=== PATIENT | female | born 1965 | race Caucasian/White ===

== ENCOUNTER 2025-01-04 10:57 | Outpatient (REF) | payer OTHER, SELFPAY ==
--- OUTSIDE RECORDS SUMMARY | 2025-01-04 11:32 | XMS_ITS | Clinical Summary ---
Author Organization [facility] Address [address] [place] [address] Care Team Providers Care Mattress Maker Name Role Phone Marky Madrid MD Primary Care Provider [phone] Allergies Active Allergy Reactions Criticality Noted Date Comments Amoxicillin 04/19/2024 Medications Medication Sig Dispensed Refills Start Date End Date Status ALPRAZolam (XANAX) 1 MG tablet Take 1 tablet (1 mg total) by mouth every night at bedtime as needed for sleep. 0 Active pancrelipase, Kpk-Retm-Jthz, (Zenpep) [address] capsule Take 1 capsule (10,000 units of lipase total) by mouth 3 (three) times a day with meals. 0 Active Escitalopram Oxalate (LEXAPRO PO) Take by mouth. 0 Active Mirtazapine (REMERON PO) Take by mouth. 0 Active Ondansetron HCl (ZOFRAN PO) Take by mouth. 0 Active traMADol HCl 25 MG TABS Take by mouth. 0 Active Active Problems No known active problems Family History Medical History Relation Name Comments Cervical cancer Mother Relation Name Status Comments Mother Social History Tobacco Use Types Packs/Day Years Used Date Smoking Tobacco: Every Day Cigarettes 0.5 Smokeless Tobacco: Never Tobacco Cessation:Ready to Q uit: Not Asked; Counseling Given: Not Answered Alcohol Use Standard Drinks/Week Comments Never 0 (1 standard drink = 0.6 oz pur e alcohol) Sex and Gender Information Value Date Recorded Sex Assigned at Female 03/28/2024 2:46 PM EDT Gender Identity Not on file Sexual Orientation Not on file Job Start Date Occupation Industry Not on file Not on file Not on file Last Filed Vital Signs Vital Sign Reading Time Taken Comments Blood Pressure 148/103 04/19/2024 11:18 AM EDT Pulse 71 04/19/2024 11:18 AM EDT Temperature 36.7 C (98 F) 04/19/2024 11:18 AM EDT Respiratory Rate - - Oxygen Saturation 99% 04/19/2024 11:18 AM EDT Inhaled Oxygen Concentration - - Weight 64.2 kg (141 lb 9.6 oz) 04/19/2024 11:18 AM EDT Height 158.8 cm (5' 2.5 ) 04/19/2024 11:18 AM ED T Body Mass Index 25.49 04/19/2024 11:18 AM EDT Plan of Treatment Health Maintenance Due Date Last Done Comments Hepatitis B Vaccines (1 of 3 - 3-dose series) 1967 Hepatitis C Screening 1967 Depression Screening 1979 Preventative Health Evaluation 1985 DTap / Tdap / Td (1 - Tdap) 1986 Cervical Cancer Screening (Pap Smear) 1988 Colon Cancer Screening (Colonoscopy) 2012 Breast Cancer Screening (Mammogram) 2017 Shingrix-Zoster Vaccine (1 of 2) 2017 Pneumococcal Vaccine (2 of 2 - PCV) 04/18/2021 04/18/2020 COVID-19 Vaccine ( season) 2024 03/30/2022, 06/09/2021, 09/10/2020, Additional history exists Influenza Vaccine (#1) 2025 RSV Ped < 20 months Aged Out No longe r eligible based on patient's age to complete this topic Care Teams Mattress Maker Relationship Specialty Start Date End Date Marky Madrid MD [address] [place] [phone] PCP - General Family Medicine 04/19/24
--- OUTSIDE RECORDS SUMMARY | 2025-01-04 11:32 | XMS_ITS | Encounter Summary ---
Author Organization [facility] Address [address] [place] [address] Care Team Providers Care Tractor Trailer Mechanic Name Role Phone Elizabeth Bee NP Primary Care Provider Reason for Visit * Reason Onset Date Comments Therapeutic Phlebotomy 12/16/2024 Encounter Details Date Type Department Care Team (Late st Contact Info) Description 12/16/2024 Telephone [facility] Hematology Oncology [address] [place] [phone] Valeria Sena, DO [address] [place] [address] Therapeutic Phlebotomy Social History Tobacco Use Types Packs/Day Years [...] PM EST documented as of this encounter Functional Status * Are you deaf or do you have serious difficulty hearing? Answer Date of Assessment Author No 05/30/2024 7:54 PM EST Guillaume Del Toro RN * Are you blind or do you have serious difficulty seeing, even when wearing glasses? Answer Date of Assessment Author No 05/30/2024 7:54 PM EST Guillaume Del Toro RN * Do you have serious difficulty walking or climbing stairs? Answer Date of Assessment Author No 05/30/2024 7:54 PM Guillaume Velez RN * Do you have serious difficulty dressing or bathing? Answer Date of Assessment Author No 05/30/2024 7:54 PM Guillaume Velez RN * Because of a physical, mental, or emotional condition, do you have serious difficulty doing errandsalone such as visiting the doctor? Answer Date of Assessment Author No 05/30/2024 7:54 PM Guillaume Velez RN documented as of this encounter Mental Status * Because of a physical, mental, or emotional condition, do you have serious difficulty concentrating, remembering, or making decisions? (5 years old or older) Answer Entry Date Author No 05/30/2024 7:54 PM Guillaume Velez RN documented in this encounter Progress Notes * Ondina Moreno RN - 12/17/2024 3:17 PM EDT S/w patient - Reviewed MD response - [place] TP was in [place] a year ago - Confirmed next FOV on 12/24/24 @ 1045. Provided [facility] info for TP to be performed there- Explained we will send the order and when [facility] receives it then they will call her to schedule the TP appt. * Ondina Moreno RN - 12/17/2024 11:01 AM EDT Awaiting callback from patient. * Valeria Sena DO - 12/16/2024 8:40 PM EDT Heme Onc Telephone note Patient has No showed one appt and cancelled another appointment. There are several results which need to be reviewed more urgently her iron level was quite high and she should go for phlebotomy Ondina can you call her and help set her up if she is not yet set up somewhere? Thanks documented in this encounter Plan of Treatment Upcoming Encounters Date Type Department Care Team (Late st Contact Info) Description 01/09/2025 10:45 AM EDT Office Visit [facility] Hematology Oncology [address] [place] [phone] Valeria Sena DO [address] [place] [address] documented as of this encounter Visit Diagnoses Not on filedocumented in this encounter Care Teams Tractor Trailer Mechanic Relationship Specialty Start Date End Date Elizabeth Bee NP [address] [place] [phone] PCP - General Internal Medicine 10/21/24 documented as of this encounter
== END 2025-01-04 10:58 | disposition home or self-care (01) ==
LOC: HO.BBR 10:57
PROVIDERS: Visit Provider Internal Medicine
DX: Z13.89 Encounter for screening for other disorder (principal)

== ENCOUNTER 2025-04-19 09:42 | Outpatient (REF) | payer OTHER, SELFPAY ==
--- OUTSIDE RECORDS SUMMARY | 2024-04-19 10:32 | XMS_ITS | Encounter Summary ---
Author Organization [facility] Address [address] [place] [address] Care Team Providers Care Kalsominer Name Role Phone Marky Madrid MD Primary Care Provider [phone] Encounter Details Date Type Department Care Team (Late st Contact Info) Description 04/19/2024 10:32 AM EDT Hospital Encounter TH HISTORIC ENCOUNTERS EASTERN CONVERSION ONLY Valeria Sena, DO [address] [place] [address] Social History Tobacco Use Types Packs/Day Years Used Date Smoking Tobacco: Every Day Cigarettes Smokeless Tobacco: Never Alcohol Use Standard Drinks/Week Comments Never 0 (1 standard drink = 0.6 oz pur e alcohol) Comments Unknown Sex and Gender Information Value Date Recorded Sex Assigned at Female 05/30/2024 4:09 PM EST Legal Sex Female 6:50 PM EDT Gender Identity Female 05/30/2024 4:09 PM EST Sexual Orientation Straight 05/30/2024 4: 09 PM EST documented as of this encounter Last Filed Vital Signs Vital Sign Reading Time Taken Comments Blood Pressure 148/103 04/19/2024 11:18 AM EDT Sitting Left arm Pulse 71 04/19/2024 11:18 AM EDT Temperature - - Respiratory Rate - - Oxygen Saturation - - Inhaled Oxygen Concentration - - Weight 64.2 kg (141 lb 9.6 oz) 04/19/2024 11:18 AM EDT Height 158.8 cm (5' 2.5 ) 04/19/2024 11 :18 AM EDT Body Mass Index 25.49 04/19/2024 11:18 AM EDT documented in this encounter Functional Status * Calculated C-SSRS Risk Score (Lifetime/Recent) Answer Date of Assessment Author No Risk Indicated 05/30/2024 8:13 PM Kemi Velez RN * [place] Suicide Severity Rating Scale (Screener/Recent Self-Report) Question Answer Date of Assessment Author 1. Wish to be (Past 1 Month) No 024 8:13 PM Kemi Velez RN 2. Non-Specific Active Suici joesph Thoughts (Past 1 Month) No 05/30/2024 8:13 PM Dominique Velez RN 6. Suicidal Behavior (Lifetime) No 8:13 PM Kemi Velez RN documented as of this encounter Plan of Treatment Upcoming Encounters Date Type Department Care Team (Late st Contact Info) Description 04/24/2025 8:30 AM EST Office Visit [facility] Hematology Oncology [address] [place] [phone] Deepa Gonzalez PA [address] [place] [address] documented as of this encounter Visit Diagnoses Not on filedocumented in this encounter Care Teams Kalsominer Relationship Specialty Start Date End Date Marky Madrid MD [address] [place] [phone] PCP - General 04/19/24 10/20/24 documented as of this encounter
--- OUTSIDE RECORDS SUMMARY | 2025-04-19 10:56 | XMS_ITS | Encounter Summary ---
Author Organization [facility] Address [address] [place] [address] Care Team Providers Care Ballpoint Pen Assembly Machine Operator Name Role Phone Elizabeth Bee NP Primary Care Provider Encounter Details Date Type Department Care Team (Late st Contact Info) Description 04/12/2025 Telephone [facility] Hematology Oncology [address] [place] [phone] Valeria Sena, DO [address] [place] [address] Social History Tobacco Use Types Packs/Day Years [...] Assessment Author No 05/30/2024 7:54 PM EST Alverto, Ka therine, RN * Do you have serious difficulty [...] documented in this encounter Progress Notes * Kristy Champagne MA - 04/15/2025 3:56 PM EDT Spoke to pt, she states PT-1 form has been completed and all set for transportation. Pt has therapeutic phlebotomy within the next week. OV scheduled with RACHNA Arenas 04/24/25 8:30 am * Valeria Sena DO - 04/14/2025 8:54 PM EDT Would need to be booked with RACHNA for a visit , and transportation arranged for therapeutic phlebotomy * Abby Amezquita - 04/12/2025 10:48 AM EDT Pt had transportation issues that why she now showed pt would like a follow up soonest I see is Decpt says she needs to be seen sooner not feeling well Wants help with PT1 Ill send message to workers' compensation mediator as well Pt says can leave a voice mail if she dorset answer documented in this encounter Plan of Treatment Upcoming Encounters Date Type Department Care Team (Late st Contact Info) Description 04/24/2025 8:30 AM EST Office Visit [facility] Hematology Oncology [address] [place] [phone] Deepa Gonzalez PA [address] [place] [address] documented as of this encounter Visit Diagnoses Not on filedocumented in this encounter Care Teams Ballpoint Pen Assembly Machine Operator Relationship Specialty Start Date End Date Elizabeth Bee NP [address] [place] [address] PCP - General Internal Medicine 10/21/24 documented as of this encounter
--- OUTSIDE RECORDS SUMMARY | 2025-04-19 10:56 | XMS_ITS | Encounter Summary ---
Author Organization [facility] Address [address] [place] [address] Care Team Providers Care Air Antisubmarine Officer Name Role Phone Elizabeth Bee NP Primary Care Provider Encounter Details Date Type Department Care Team (Late st Contact Info) Description 04/15/2025 Telephone [facility] Hematology Oncology [address] [place] [phone] Valeria Sena, DO [address] [place] [address] Social History Tobacco Use Types Packs/Day Years [...] documented in this encounter Progress Notes * Letha Pinto - 04/15/2025 8:40 AM EDT Needs help with PT-1 form, does have updated address, appt Tuesday for phlebotomy. documented in this encounter Plan of Treatment Upcoming Encounters Date Type Department Care Team (Late st Contact Info) Description 04/24/2025 8:30 AM EST Office Visit [facility] Hematology Oncology [address] [place] [phone] Deepa Gonzalez PA [address] [place] [address] documented as of this encounter Visit Diagnoses Not on filedocumented in this encounter Care Teams Air Antisubmarine Officer Relationship Specialty Start Date End Date Elizabeth Bee NP [address] [place] [address] PCP - General Internal Medicine 10/21/24 documented as of this encounter
--- OUTSIDE RECORDS SUMMARY | 2025-04-19 10:56 | XMS_ITS | Clinical Summary ---
Author Organization [facility] Address [address] [place] [address] Care Team Providers Care Slot Attendant Name Role Phone Elizabeth Bee NP Primary Care Provider Allergies Active Allergy Reactions Criticality Noted Date Comments Amoxicillin Swelling 05/30/2024 Medications nicotine (NICODERM CQ) 21 mg/[address] 1 patch on the skin 1 (one) time each day at the same time. 30 each 05/30/2024 Active amLODIPine (NORVASC) 5 mg tablet Take 1 tablet (5 mg total) by mouth 1 (one) time each day for 14 days. 14 each 05/30/2024 Active Active Problems Problem Noted Date Diagnosed Date Chronic pancreatitis ([facility] V24, [facility] V28) 10/21/2024 Anxiety 10/21/2024 Hereditary hemochromatosis ([facility] V24) 025 Hypertension 10/21/2024 Pain in the abdomen 10/21/2024 Encounters Date Type Department Care Team Description 04/15/2025 Telephone [facility] Hematology Oncology [address] [place] [phone] Valeria Sena DO 04/12/2025 Social Work [facility] [address] [place] [phone] Juan C Grimm LMSW 04/12/2025 Telephone [facility] Hematology Oncology [address] [place] [phone] Valeria Sena DO from Last 3 Months Immunizations Immunization Administration Dates Next Due Pfizer (ages 12 & older) ZAKIA S-CoV-2 COVID-19, mRNA, LNP-S, judie-sucrose, preservative free 03/30/2022,06/09/2021,09/10/2020,2020 Medical History Medical History Date Comments Hemochromatosis Pancreatitis Anxiety Social History Tobacco Use Types Packs/Day Years Used Date Smoking Tobacco: Every Day Cigarettes Smokeless Tobacco: Never Tobacco Cessation:Ready to Q [...] Orientation Straight 05/30/2024 4: 09 PM EST Obstetrics History Last Filed Vital Signs Vital Sign Reading Time Taken Comments Blood Pressure 138/83 10/18/2024 9:21 AM EDT Pulse 84 10/18/2024 9:21 AM EDT Temperature 36.7 C (98 F) 10/18/2024 9:21 AM EDT Respiratory Rate 15 05/30/2024 8:45 PM EST Oxygen Saturation 100% 10/18/2024 9:21 AM EDT Inhaled Oxygen Concentration - - Weight 62.1 kg (137 lb) 10/18/2024 9:21 AM EDT Height 157.5 cm (5' 2 ) 10/18/2024 9:21 AM EDT Body Mass Index 25.06 10/18/2024 9:21 AM EDT Plan of Treatment Upcoming Encounters Date Type Department Care Team (Late st Contact Info) Description 04/24/2025 8:30 AM EST Office Visit [facility] Hematology Oncology [address] [place] [phone] Deepa Gonzalez PA [address] [place] [address] Health Maintenance Due Date Last Done Comments Breast Cancer Screening 1967 Colorectal Cancer Screening: Colonoscopy 1967 Hepatitis B Vaccines (1 of 3 - 19+ 3-dose series) 1986 Cervical Cancer Screening: Pap Smear 1988 RSV Immunization Adult Patients (1 - Risk 50-74 years 1-dose series) 2017 Zoster Vaccines (1 of 2) 2017 DTaP,Tdap,and Td Vaccines (2 - Td or Tdap) 02/18/2018 02/19/2008 Pneumococcal Vaccine: 50+ Years (2 of 2 - PCV) 04/18/2021 04/18/2020 Cholesterol Screening (Lipid Panel) 04/04/2024 HIV Screening 04/04/2024 Hepatitis C Screening 04/04/2024 Social Influencers of Health Screening 04/04/2024 Depression Screening 06/20/2024 Influenza Vaccine (#1) 2025 03/30/2022 Hypertension/CHF/CAD Annual BMP Blood Test 10/18/2025 10/18/2024, 05/30/2024 MMR Vaccines Aged Out 10/12/2021, 08/03/2021 No lo nger eligible based on patient's age to complete this topic COVID-19 Vaccine Completed 03/09/2024, 04/2022, 06/09/2021, Additional history exists HIB Vaccines Aged Out No longer eligi ble based on patient's age to complete this topic HPV Vaccines Aged Out No longer eligi ble based on patient's age to complete this topic Hepatitis A Vaccines Aged Out No long er eligible based on patient's age to complete this topic IPV Vaccines Aged Out No longer eligi ble based on patient's age to complete this topic Meningococcal ACWY Vaccine Aged Out N o longer eligible based on patient's age to complete this topic Meningococcal B Vaccine Aged Out No l onger eligible based on patient's age to complete this topic RSV Immunization Patients Under 20 months Aged Out No longer eligible based on patient's age to complete this topic Varicella Vaccines Aged Out No longer eligible based on patient's age to complete this topic Procedures Procedure Name Priority Date/Time Associated Diagnosis Comments COMPREHENSIVE METABOLIC PANEL Routine 10/18/2024 10:25 AM EDT Hereditary hemochromatosis (CMS/HCC V24) from Last 3 Months or Most Recently Relevant to Health Maintenance Results * (ABNORMAL) Comprehensive metabolic panel (10/18/2024 10:25 AM EDT) [facility] Sodium 137 133 - 145 mmol/L LAB CHEMISTRY METHOD 10/18/2024 12:23 PM [facility] Potassium 4.6 3.5 - 5.5 mmol/L LAB CHEMISTRY METHOD 10/18/2024 12:23 PM [facility] Chloride 106 96 - 110 mmol/L LAB CHEMISTRY METHOD 10/18/2024 12:23 PM [facility] CO2 24 21 - 32 mmol/L LAB CHEMISTRY METHOD 10/18/2024 12:23 PM [facility] Anion Gap 7 3 - 11 LAB CHEMISTRY METHOD 10/18/2024 12:23 PM [facility] Glucose 106(H) 70 - 100 mg/dL LAB CHEMISTRY METHOD 10/18/2024 12:23 PM [facility] BUN 13 5 - 25 mg/dL LAB CHEMISTRY METHOD 10/18/2024 12:23 PM [facility] Creatinine 0.64 0.50 - 1.10 mg/dL LAB CHEMISTRY METHOD 10/18/2024 12:23 PM [facility] eGFR 103 >=60 mL/min/1. 73m2 LAB CHEMISTRY METHOD 10/18/2024 12:23 PM [facility] Comment:Calculation based on the Chronic Kidney Disease Epidemiology Collaboration (CKD-EPI) equation refit without adjustment for race. BUN/Creatinine Ratio 20.3 LAB CHEMISTRY METHOD 10/18/2024 12:23 PM [facility] Calcium 8.8 8.5 - 10.5 mg/dL LAB CHEMISTRY METHOD 10/18/2024 12:23 PM [facility] AST (SGOT) 9(L) 10 - 42 unit/L LAB CHEMISTRY METHOD 10/18/2024 12:23 PM [facility] ALT (SGPT) 14 10 - 60 unit/L LAB CHEMISTRY METHOD 10/18/2024 12:23 PM EDT [facility] Alkaline Phosphatase 102 42 - 121 unit/L LAB CHEMISTRY METHOD 10/18/2024 12:23 PM EDT [facility] Total Protein 7.4 6.0 - 8.0 g/dL LAB CHEMISTRY METHOD 10/18/2024 12:23 PM EDT [facility] Albumin 4.0 3.2 - 5.0 g/dL LAB CHEMISTRY METHOD 10/18/2024 12:23 PM EDT [facility] Total Bilirubin 0.4 0.0 - 1.4 mg/dL LAB CHEMISTRY METHOD 10/18/2024 12:23 PM EDT [facility] Blood Blood sample taken from central line / Unknown Existing Catheter / Unknown 10/18/2024 10:25 AM EDT 10/18/2024 11:10 AM EDT Valeria Sena DO LAB BLOOD ORDERABLES Final Result [facility] [address] [place] [address], from Last 3 Months or Most Recently Relevant to Health Maintenance Insurance [facility] MEDICAID ADVANTAGE Care Teams Slot Attendant Relationship Specialty Start Date End Date Elizabeth Bee NP [address] [place] [id number] PCP - General Internal Medicine 10/21/24
--- OUTSIDE RECORDS SUMMARY | 2025-04-19 10:56 | XMS_ITS | Clinical Summary ---
Author Organization [facility] Address [address] [place] [address] Care Team Providers Care Rn Cardiac Rehab Name Role Phone Marky Madrid MD Primary Care Provider [phone] Allergies Active Allergy Reactions Criticality Noted Date Comments Amoxicillin 04/19/2024 Medications Medication Sig Dispensed Refills Start Date End Date Status ALPRAZolam (XANAX) 1 MG tablet Take 1 tablet (1 mg total) by mouth every night at bedtime as needed for sleep. 0 Active pancrelipase, Dts-Kimj-Jhdr, (Zenpep) [address]-[address] capsule Take 1 capsule [...] 2 - PCV) 04/18/2021 04/18/2020 COVID-19 Vaccine (2024- season) 2025 03/30/2022, 06/09/2021, 09/10/2020, Additional history exists Influenza Vaccine (#1) 2025 RSV Ped < 20 months Aged Out No longe r eligible based on patient's age to complete this topic Care Teams Rn Cardiac Rehab Relationship Specialty Start Date End Date Marky Madrid MD [address] [place] [address] PCP - General Family Medicine 04/19/24
== END 2025-04-19 09:43 | disposition home or self-care (01) ==
LOC: HO.BBR 09:42
PROVIDERS: Visit Provider Internal Medicine
DX: Z13.89 Encounter for screening for other disorder (principal)

== ENCOUNTER 2025-05-06 08:45 | Outpatient (REF) | payer OTHER, SELFPAY | END 2025-05-06 08:46 | disposition home or self-care (01) | LOC: HO.BBR 08:45 | PROVIDERS: Visit Provider Internal Medicine | DX: Z13.89 Encounter for screening for other disorder (principal) ==